=== PATIENT | male | born 1965 | race Hispanic/Latino ===

== ENCOUNTER 2016-10-31 17:04 | Emergency (ER) | payer MEDICARE ==
[2016-10-31 18:52] LABS: Basophils % (Auto) 0.5 % (0.0-1.8); Eosinophils % (Auto) 0.7 % (0.0-4.3); Hematocrit 45.9 % (35.5-45.6); Hemoglobin 15.4 gm/dl (11.8-15.2); Mean Corpuscular HGB Conc 33 % (32-34); Mean Corpuscular Hemoglobin 31 pg (28-32); Mean Corpuscular Volume 93 fl (84-94); Platelet Count 268 K/mm3 (140-440); Red Blood Count 4.96 M/mm3 (3.65-5.03); Red Cell Distribution Width 13.6 % (13.2-15.2)
[2016-10-31 18:59] LABS: Anion Gap 21 mmol/L; BUN/Creatinine Ratio 12.85; Blood Urea Nitrogen 9 mg/dL (9-20); Calcium 9.8 mg/dL (8.4-10.2); Carbon Dioxide 21 mmol/L (22-30); Chloride 99.6 mmol/L (98-107); Glucose 68 mg/dL (75-100); Potassium 3.8 mmol/L (3.6-5.0); Sodium 138 mmol/L (137-145)
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
[2016-11-01 00:30] LABS: Urine Drugs of Abuse Note Disclamer
[2016-11-01 00:40] LABS: Bilirubin,Urine NEG (Negative); Blood,Urine NEG (Negative); Ketones,Urine NEG (Negative); Leukocyte Esterase,Urine NEG (Negative); Mucus,Urine FEW /HPF; Nitrite,Urine NEG (Negative); Urobilinogen,Urine < 2.0 mg/dL (<2.0)
--- NOTE | 2016-11-01 17:11 | Consultation ---
History of Present Illness - Reason for Consult Consult date: 11/01/16 Reason for consult: Mental Health Evaluation Requesting physician: TY LEE - Chief Complaint Chief complaint: "I want to leave" - History of Present Psychiatric Illness This is a 51-year-old male presents the emergency department with complaint of suicidal and homicidal ideations. Today patient is irritable and disorganized during the assessment. He stated that he wanted to be discharged so he can move to [place], [place]. Currently, the patient reside at a nursing home locally. He stated that he was suicidal and homicidal yesterday because of voices telling him he is owed money by the nursing home director. He stated that the voices are "common" but he tries to ignore them. He denies SI/HI's, VH's, and depression. He stated that he takes Haldol and was discharged from [facility] 2 days ago. He denies recreational drug use and excessive alcohol consumption ( etoh). Medications and Allergies Allergies Allergy/AdvReac Type Severity Reaction Status Date / Time No Known Allergies Allergy Unverified 11/23/15 08:28 Home Medications Medication Instructions Recorded Confirmed Last Taken Type Benztropine [Cogentin] 1 mg PO BID #60 tab 11/23/15 Unknown Rx Omeprazole 40 mg PO QDAY #30 capsule. 11/23/15 Unknown Rx fluPHENAZine HCL [Prolixin] 10 mg PO QDAY #30 tablet 11/23/15 Unknown Rx Past psychiatric history - Past Medical History Past Medical History: hypertension Past Surgical History: No surgical history - past Psychiatric treatment and history Psych: Schizophrenia psychiatric treatment history: Recently discharged from [facility] for mental health. Denies a fam psy hx. - Social History Social history: other (Reside at a nursing home) Mental Status Exam - Vital signs Last Vital Signs Temp 98 F 11/01/16 03:41 Pulse 89 11/01/16 03:41 Resp 16 11/01/16 13:10 BP 127/84 11/01/16 03:41 Pulse Ox 100 11/01/16 03:41 - Exam Narrative exam: ROS: (+) psychosis MSE: Appearance: irritable Behavior: regular eye contact Speech: regular rate and tone Mood: "nothing wrong with me" Affect: labile Thought Process: tangential Thought Content: denies SI/HI's and VH's, disorganized Motor Activity: in chair Cognition: A/Ox 3 Insight: limited Judgment: limited Results Result Diagrams: 10/31/16 18:28 10/31/16 18:28 Abnormal lab results 10/31/16 10/31/16 Range/Units 18:28 18:28 Hgb 15.4 H (11.8-15.2) gm/dl Hct 45.9 H (35.5-45.6) % [place] % (Auto) 8.1 H (0.0-7.3) % [place] # 0.9 H (0.0-0.8) K/mm3 Carbon Dioxide 21 L (22-30) mmol/L Creatinine 0.7 L (0.8-1.5) mg/dL Glucose 68 L (75-100) mg/dL All other labs normal. Assessment and Plan Assessment and plan: Impression: Historical Dx: Schizophrenia. Unspecified Psychotic DO. Acute psychosis. Today patient is irritable and disorganized during the assessment. UDS is negative. DDx: R/O Bipolar Recommendation/Plan: Continue 1013 with placement to inpatient psy services. Start Haldol 5 mg PO BID for schizophrenia and Cogentin 0.5 mg PO BID for EPS preventions.
[2016-11-01 19:46] VITALS: BP 120/81
[2016-11-01] MEDS ORDERED: HALDOL PO SCH (22:00)
[2016-11-01] MEDS ORDERED: COGENTIN PO SCH (22:00)
== END 2016-11-01 22:33 ==
LOC: ED 17:04 → EEVIPCON 17:04 → ED 11-01 22:33
DX: R45.851 Suicidal ideations (principal); R45.850 Homicidal ideations; I10 Essential (primary) hypertension
CPT/HCPCS: 36415; 80048; 80307; 81001; 85025; 99285; G0480; 80320